=== PATIENT | female | born 1985 | race Caucasian/White ===

== ENCOUNTER 2017-05-16 21:30 | Inpatient (IN) | payer OTHER ==
[~2017-05-16] VITALS: Ht 152.4 cm; Wt 57.0 kg
[2017-05-16 21:30] VITALS: RESP 18; O2SAT 100; O2SAT 99
[2017-05-16] MEDS ORDERED: LIDOCAINE HCL 1% 50 ML VIAL ONE (21:34)
[2017-05-16] MEDS ORDERED: DIPHTH/TETANUS/ACEL PERTUSSIS (BOOSTER) 0.5 ML VIAL/PFS IM ONE (21:35)
[2017-05-16] MEDS ORDERED: ceFAZolin 2 GM PREMIX 50 ML ONE (21:35)
[2017-05-16 22:02] LABS: I-STAT POTASSIUM 2.9 MMOL/L (3.5-4.9)
[2017-05-16 22:03] LABS: AUTOMATED NEUTROPHIL # 7.9 TH/MM3 (1.8-7.7); BASOPHIL # 0.1 TH/MM3 (0-0.2); BASOPHIL % 0.4 % (0.0-2.0); EOSINOPHIL # 0.4 TH/MM3 (0-0.4); EOSINOPHIL % 2.8 % (0.0-4.0); HEMATOCRIT 36.6 % (35.0-46.0); HEMO FLAGS DIFF FINAL; LYMPH % 34.3 % (9.0-44.0); LYMPHOCYTE # 4.7 TH/MM3 (1.0-4.8); MEAN CELL VOLUME 96.5 FL (80.0-100.0); MEAN CORPUSCULAR HEMOGLOBIN 32.9 PG (27.0-34.0); MEAN CORPUSCULAR HGB CONC 34.1 % (32.0-36.0); MONO % 4.6 % (0.0-8.0); NEUT % 57.9 % (16.0-70.0); PLATELET COUNT 183 TH/MM3 (150-450); RED BLOOD COUNT 3.79 MIL/MM3 (4.00-5.30); RED CELL DISTRIBUTION WIDTH 13.1 % (11.6-17.2); WHITE BLOOD COUNT 13.6 TH/MM3 (4.0-11.0)
[2017-05-16] MEDS ORDERED: IOHEXOL 350 MG/ML 10 ML VIAL (for RAD DIAG) IVCONTRAST ONE (22:11)
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
[2017-05-16 22:16] LABS: APTT (PATIENT) 23.3 SEC (24.3-30.1); PROTHROMBIN TIME - PATIENT 11.4 SEC (9.8-11.6)
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
[2017-05-16] MEDS ORDERED: MORPHINE SULFATE 4 MG/ML INJ IV PUSH ONE (22:30)
[2017-05-16] MEDS ORDERED: ONDANSETRON HCL 4 MG/2 ML VIAL IV PUSH ONE (22:30)
[2017-05-16 22:45] VITALS: BP 109/68; PULSE 84; RESP 18; O2SAT 98
--- NOTE | 2017-05-16 23:12 | PD ---
Physical Exam Date Seen by Provider: May 16, 2017 Time Seen by Provider: 23:10 Data Data Last Documented VS Vital Signs Date Time Temp Pulse Resp B/P (MAP) Pulse Ox O2 Delivery O2 Flow Rate FiO2 05/16/17 21:30 18 100 Room Air 05/16/17 21:30 21 Orders Orders Lidocaine 1% Inj (50 Ml) (Xylocaine 1% I (05/16/17 21:34) Cefazolin 2 Gm Premix (Ancef 2 Gm Premix (05/16/17 21:35) Sgwb-Rzo-Wrnman (Booster) Inj (Boostrix (05/16/17 21:35) I-Stat Profile (05/16/17 21:33) I-Stat Creatinine (05/16/17 21:33) Complete Blood Count With Diff (05/16/17 21:33) Prothrombin Time / Inr (Pt) (05/16/17 21:33) Act Partial Throm Time (Ptt) (05/16/17 21:33) Type And Screen (05/16/17 21:33) Ct Brain W/O Iv Contrast(Rout) (05/16/17 21:33) Ct Cerv Spine W/O Contrast (05/16/17 21:33) Ct Abd/Pel W Iv Contrast(Rout) (05/16/17 21:33) Ct Thorax/ Chest W Iv Contrast (05/16/17 21:33) Ct Facial Bones W/O Iv Cont (05/16/17 21:33) Iv Access Insert/Monitor (05/16/17 21:33) Ecg Monitoring (05/16/17 21:33) Oximetry (05/16/17 21:33) Oxygen Administration (05/16/17 21:33) Chest, Single Ap (05/16/17 ) Iohexol 350 Inj (Omnipaque 350 Inj) (05/16/17 22:11) Morphine Inj (Morphine Inj) (05/16/17 22:30) Ondansetron Inj (Zofran Inj) (05/16/17 22:30) Admit Order (Ed Use Only) (05/16/17 22:37) NPO (05/16/17 22:39) Activity Bed Rest With Brp (05/16/17 22:39) Vital Signs (Adult) СВЕТЛАНА.Q4H (05/16/17 22:39) Labs Laboratory Tests Test 05/16/17 21:35 White Blood Count 13.6 TH/MM3 Red Blood Count 3.79 MIL/MM3 Hemoglobin 12.5 GM/DL Bedside Hemoglobin 12.6 G/DL Hematocrit 36.6 % Bedside Hematocrit 37.0 % Mean Corpuscular Volume 96.5 FL Mean Corpuscular Hemoglobin 32.9 PG Mean Corpuscular Hemoglobin Concent 34.1 % Red Cell Distribution Width 13.1 % Platelet Count 183 TH/MM3 Mean Platelet Volume 9.6 FL Neutrophils (%) (Auto) 57.9 % Lymphocytes (%) (Auto) 34.3 % Monocytes (%) (Auto) 4.6 % Eosinophils (%) (Auto) 2.8 % Basophils (%) (Auto) 0.4 % Neutrophils # (Auto) 7.9 TH/MM3 Lymphocytes # (Auto) 4.7 TH/MM3 Monocytes # (Auto) 0.6 TH/MM3 Eosinophils # (Auto) 0.4 TH/MM3 Basophils # (Auto) 0.1 TH/MM3 CBC Comment DIFF FINAL Differential Comment Prothrombin Time 11.4 SEC Prothromb Time International Ratio 1.0 RATIO Activated Partial Thromboplast Time 23.3 SEC Bedside Sodium 144 MMOL/L Bedside Potassium 2.9 MMOL/L Bedside Chloride 110 MMOL/L Bedside Blood Urea Nitrogen 6 MG/DL Bedside Creatinine 0.7 MG/DL Bedside Glucose 143 MG/DL [facility] Supervised Visit with IVA: No Narrative Course I was asked to evaluate this patient's scalp laceration. The patient was initially seen by Dr. Ocampo. Please see his note for full H &P. On my exam an 18 cm laceration of the scalp that extends into the hairline increased a large flap. Patient is alert with repetitive questioning.. Laceration repair was performed. Please see my procedure note for details. Dr. Ocampo retains care of this patient. Please see his note for disposition. Procedures Procedure Narrative LACERATION LOCATION: Scalp, forehead LENGTH: 18 cm NUMBER OF STITCHES/BELINDA: 11 deep, 21 superficial, 10 belinda superficial REPAIR: The area of the laceration was prepped with Betadine and sterilely draped. The laceration was infiltrated with 1% lidocaine. The wound was copiously irrigated and explored without evidence of foreign body, tendon injury or neurovascular injury. The wound was closed using 3-0 Vicryl, 5-0 Prolene, surgical belinda. This was a 2 layer repair. A sterile dressing was applied. The patient was advised to keep the wound clean and dry. Patient tolerated the procedure well. Scripts Unable to Obtain Active Prescriptions or Reported Meds Candace Mclain May 16, 2017 23:12
[2017-05-16 23:30] VITALS: BP 113/61; PULSE 90; RESP 18; O2SAT 98
[2017-05-17 00:10] VITALS: BP 114/74; PULSE 90; RESP 17; TEMP 96.2; O2SAT 99
[2017-05-17] MEDS ORDERED: Post-op Orders (for Pharmacy) MISC XX ONE (00:30)
[2017-05-17] MEDS ORDERED: ACETAMINOPHEN/HYDROcodone 325 MG/5 MG TAB PO PRN (00:30)
[2017-05-17] MEDS ORDERED: NALOXONE HCL 0.4 MG/ML AMP IV PUSH PRN (00:30)
[2017-05-17] MEDS ORDERED: SODIUM CHLOR 0.9% 1000 ML INJ 1,000 ML IV SCH (01:00)
[2017-05-17 01:54] LABS: ALKALINE PHOSPHATASE 53 U/L (45-117); ALT (GPT) 143 U/L (10-53); ANION GAP 10 MEQ/L (5-15); AST (GOT) 175 U/L (15-37); BICARBONATE 18.6 MEQ/L (21.0-32.0); BLOOD UREA NITROGEN 8 MG/DL (7-18); CALCIUM-PROTEIN CORRECTED 7.8 MG/DL (8.5-10.1); CHLORIDE 114 MEQ/L (98-107); GLOMERULAR FILTRATION RATE 142 ML/MIN (>89); SODIUM (NA) 143 MEQ/L (136-145); TOTAL BILIRUBIN ADULT LESS THAN 0.1 MG/DL (0.2-1.0)
[2017-05-17] MEDS: MORPHINE SULFATE 4 MG/ML INJ IV PUSH PRN ×2 (03:23→07:00)
[2017-05-17 04:00] VITALS: BP 129/73; PULSE 97; RESP 16; TEMP 98.3; O2SAT 96
[2017-05-17] MEDS: ONDANSETRON HCL 4 MG/2 ML VIAL IV PUSH PRN (07:00)
[2017-05-17] MEDS ORDERED: LACTULOSE SYRUP 20 GM/30 ML CUP PO PRN (07:15)
[2017-05-17 08:00] VITALS: BP 139/73; PULSE 86; RESP 16; TEMP 96; O2SAT 96
[2017-05-17] MEDS: LIDOCAINE HCL 5% PATCH T-DERMAL SCH (08:59)
[2017-05-17] MEDS: SODIUM CHLORIDE 0.9% FLUSH 10 ML FLUSH IV FLUSH SCH ×2 (09:00→20:41)
[2017-05-17] MEDS: DOCUSATE SODIUM 50 MG/SENNA 8.6 MG TAB PO SCH ×2 (09:01→20:40)
[2017-05-17] MEDS: ACETAMINOPHEN 1000 MG/100 ML 100 ML IV SCH ×3 (09:01→20:41)
[2017-05-17] MEDS: FAMOTIDINE 20 MG TAB PO SCH ×2 (09:01→20:40)
[2017-05-17] MEDS: METHOCARBAMOL 500 MG TAB PO SCH ×3 (09:10→20:40)
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
[2017-05-17 09:57] LABS: AUTOMATED NEUTROPHIL # 12.6 TH/MM3 (1.8-7.7); BASOPHIL % 0.1 % (0.0-2.0); HEMATOCRIT 36.1 % (35.0-46.0); HEMO FLAGS DIFF FINAL; LYMPH % 6.4 % (9.0-44.0); LYMPHOCYTE # 0.9 TH/MM3 (1.0-4.8); MEAN CELL VOLUME 95.7 FL (80.0-100.0); MEAN CORPUSCULAR HEMOGLOBIN 32.8 PG (27.0-34.0); MEAN CORPUSCULAR HGB CONC 34.3 % (32.0-36.0); MONO % 5.9 % (0.0-8.0); NEUT % 87.6 % (16.0-70.0); PLATELET COUNT 159 TH/MM3 (150-450); RED BLOOD COUNT 3.77 MIL/MM3 (4.00-5.30); RED CELL DISTRIBUTION WIDTH 13.1 % (11.6-17.2); WHITE BLOOD COUNT 14.4 TH/MM3 (4.0-11.0)
[2017-05-17 10:20] LABS: ANION GAP 10 MEQ/L (5-15); BICARBONATE 22.9 MEQ/L (21.0-32.0); BLOOD UREA NITROGEN 5 MG/DL (7-18); CHLORIDE 110 MEQ/L (98-107); GLOMERULAR FILTRATION RATE 148 ML/MIN (>89); POTASSIUM 3.9 MEQ/L (3.5-5.1); SODIUM (NA) 143 MEQ/L (136-145)
[2017-05-17 10:24] LABS: BETA HCG QUANT LESS THAN 1 MIU/ML (0-5)
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
[2017-05-17 12:00] VITALS: BP 123/76; PULSE 84; RESP 16; TEMP 97; O2SAT 97
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
[2017-05-17 16:00] VITALS: BP 108/68; PULSE 62; RESP 16; TEMP 98.1; O2SAT 99
--- NOTE | 2017-05-17 16:22 | EKG ---
Date Performed: 05/16/2017 Time Performed: 22:15:23 PTAGE: 31 years EKG: SINUS TACHYCARDIA ABNORMAL RHYTHM ECG NO PREVIOUS TRACING DOCTOR: Zaheer Faye Interpretating Date/Time 05/17/2017 16:20:20
[2017-05-17 20:00] VITALS: BP 123/84; PULSE 75; RESP 18; TEMP 97.6; O2SAT 100
[2017-05-17] MEDS: REMOVE OLD PATCH-LIDOCAINE T-DERMAL SCH (20:44)
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
[2017-05-18] VITALS (9 sets, daily range): BP systolic 116–132; BP diastolic 74–90; PULSE 61–86; RESP 16–20; TEMP 97.5–98.9; O2SAT 98–100
[2017-05-18] MEDS: ACETAMINOPHEN 1000 MG/100 ML 100 ML IV SCH (00:49)
[2017-05-18] MEDS: SODIUM CHLORIDE 0.9% FLUSH 10 ML FLUSH IV FLUSH PRN ×2 (00:50→05:02)
[2017-05-18] MEDS ORDERED: POVIDONE IODINE 5% (ANTISEPSIS KIT) 4 APPLICATIONS EACH NARE PRN (02:00)
[2017-05-18] MEDS ORDERED: CHLORHEXIDINE GLUCONATE 2 % 1 PACK (2 CLOTHS) TOPICAL PRN (02:00)
[2017-05-18] MEDS ORDERED: LACTATED RINGER'S 1000 ML IV PRN (02:00)
[2017-05-18] MEDS: METHOCARBAMOL 500 MG TAB PO SCH ×3 (05:00→21:02)
[2017-05-18] MEDS: ONDANSETRON HCL 4 MG/2 ML VIAL IV PUSH PRN ×2 (05:00→13:34)
[2017-05-18] MEDS: DOCUSATE SODIUM 50 MG/SENNA 8.6 MG TAB PO SCH ×2 (08:20→21:02)
[2017-05-18] MEDS: FAMOTIDINE 20 MG TAB PO SCH ×2 (08:20→21:02)
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
[2017-05-18] MEDS: BACITRACIN TOP OINT 15 GM TUBE TOPICAL SCH ×2 (09:14→21:03)
[2017-05-18] MEDS: LIDOCAINE HCL 5% PATCH T-DERMAL SCH (09:14)
[2017-05-18] MEDS: SODIUM CHLORIDE 0.9% FLUSH 10 ML FLUSH IV FLUSH SCH ×2 (09:15→21:02)
[2017-05-18] MEDS ORDERED: ACETAMINOPHEN 1000 MG/100 ML 100 ML IV ONE (10:30)
[2017-05-18] MEDS ORDERED: ceFAZolin 2 GM PREMIX 50 ML ONE (10:51)
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
[2017-05-18] MEDS ORDERED: *MEPERIDINE 25 MG INJ VIAL PERIprocedural Use ONLY ONE (12:20)
--- NOTE | 2017-05-18 12:26 | RADRPT ---
EXAM DATE/TIME: 05/18/2017 11:15 [facility] COMPARISON: ANKLE LEFT LIMITED (AP&LAT), May 17, 2017, 14:06. INDICATIONS : Open reduction internal fixation of the left ankle. MEDICAL HISTORY : None. SURGICAL HISTORY : None. ENCOUNTER: Subsequent ACUITY: 2 days PAIN SCORE: Non-responsive. LOCATION: Left ankle. FINDINGS: 5 intraoperative spot images of the left ankle. Medial malleolus fracture again seen. Medial internal fixation plate and 3 transfixing screws identified. CONCLUSION: Intraoperative spot images of the ankle showing fracture and internal fixation hardware. Jesus Holbrook MD on May 18, 2017 at 12:23 Board Certified Radiologist. This report was verified electronically.
[2017-05-18] MEDS: KETOROLAC TROMETHAMINE 30 MG/ML (IVP) VIAL IV PUSH SCH ×3 (12:29→23:17)
--- NOTE | 2017-05-18 12:31 | HHI.PR ---
Immediate Post Op Note Procedure Date: May 18, 2017 Pre Op Diagnosis: Left medial malleolus fracture Post Op Diagnosis: same Surgeon: Kolton Clay DPM Band And Cuff Cutter(s): Staff Procedure: ORIF Left ankle, medial malleolus Findings: Consistent with diagnosis. Transverse medial malleolus fracture displaced. Linear incision made over the area and periosteum in fracture site inhibiting reduction. Synthes medial hook plate and 4.0 cannulated cancellous screw placed distally, and two proximal screws, distally fully-threaded cancellous and proximally cortical screw, placed through 2 most proximal holes in plate respectively, and reduction confirmed with c-arm. Examination under anesthesia showed ankle joint to be stable. Irrigation and closure with 3-0 vicryl and 2-0 nylon suture, followed by xeroform, 4x4, cast padding, short posterior splint and ashwin LLE. NWB LLE. Keep clean, dry, intact Follow up in clinic 1 week for dressing change Additional Information: 2g ancef IV Complications: None Specimen(s) removed: N/a Estimated blood loss: Minimal Anesthesia: General Drains: None IVF Tourniquet time (min at mmHg) n/a Patient to: PACU Patient Condition: Good Date/Time of Procedure: SEE SURGICAL CARE RECORD Kolton Clay DPM May 18, 2017 12:31
[2017-05-18] MEDS ORDERED: DO NOT ADM ANY ANTICOAGULANT DRUGS PRN (12:45)
--- NOTE | 2017-05-18 13:24 | RADRPT ---
EXAM DATE/TIME: 05/18/2017 12:38 [facility] COMPARISON: ANKLE LEFT COMPLETE ([id number]), May 18, 2017, 11:15. INDICATIONS : Post operative images. MEDICAL HISTORY : Fracture. SURGICAL HISTORY : None. ENCOUNTER: Initial ACUITY: 1 day PAIN SCORE: 7/10 LOCATION: Left ankle. FINDINGS: 3 views left ankle. Medial internal fixation plate and 3 transfixing screws are seen in the distal ti herber. Medial malleolus fracture again seen. Alignment is near anatomic CONCLUSION: Internal fixation hardware in place across medial malleolus fracture. Jesus Holbrook MD on May 18, 2017 at 13:21 Board Certified Radiologist. This report was verified electronically.
[2017-05-18 14:57] LABS: INDIRECT BILIRUBIN 0.3 MG/DL (0.0-0.8); TOTAL BILIRUBIN ADULT 0.4 MG/DL (0.2-1.0)
[2017-05-18] MEDS: REMOVE OLD PATCH-LIDOCAINE T-DERMAL SCH (21:10)
[2017-05-19 04:00] VITALS: BP 125/76; PULSE 89; RESP 17; TEMP 97.9; O2SAT 98
[2017-05-19] MEDS: METHOCARBAMOL 500 MG TAB PO SCH (06:00)
[2017-05-19] MEDS: KETOROLAC TROMETHAMINE 30 MG/ML (IVP) VIAL IV PUSH SCH ×2 (06:00→11:04)
[2017-05-19] MEDS: SODIUM CHLORIDE 0.9% FLUSH 10 ML FLUSH IV FLUSH PRN (06:00)
[2017-05-19 07:02] LABS: AUTOMATED NEUTROPHIL # 8.5 TH/MM3 (1.8-7.7); BASOPHIL % 0.3 % (0.0-2.0); EOSINOPHIL % 0.3 % (0.0-4.0); HEMATOCRIT 33.6 % (35.0-46.0); HEMO FLAGS DIFF FINAL; LYMPH % 16.3 % (9.0-44.0); LYMPHOCYTE # 1.9 TH/MM3 (1.0-4.8); MEAN CELL VOLUME 95.8 FL (80.0-100.0); MEAN CORPUSCULAR HEMOGLOBIN 32.5 PG (27.0-34.0); MONO % 8.8 % (0.0-8.0); NEUT % 74.3 % (16.0-70.0); PLATELET COUNT 140 TH/MM3 (150-450); RED BLOOD COUNT 3.51 MIL/MM3 (4.00-5.30); RED CELL DISTRIBUTION WIDTH 13.1 % (11.6-17.2); WHITE BLOOD COUNT 11.4 TH/MM3 (4.0-11.0)
[2017-05-19 07:12] LABS: ALT (GPT) 81 U/L (10-53); ANION GAP 6 MEQ/L (5-15); AST (GOT) 56 U/L (15-37); BICARBONATE 28.2 MEQ/L (21.0-32.0); BLOOD UREA NITROGEN 8 MG/DL (7-18); CHLORIDE 105 MEQ/L (98-107); GLOMERULAR FILTRATION RATE 145 ML/MIN (>89); POTASSIUM 3.9 MEQ/L (3.5-5.1); SODIUM (NA) 139 MEQ/L (136-145)
[2017-05-19 07:14] LABS: ALKALINE PHOSPHATASE 57 U/L (45-117); TOTAL BILIRUBIN ADULT 0.6 MG/DL (0.2-1.0)
[2017-05-19 08:00] VITALS: BP 134/91; PULSE 94; RESP 19; TEMP 98; O2SAT 100
[2017-05-19 08:30] VITALS: O2SAT 95
[2017-05-19] MEDS: BACITRACIN TOP OINT 15 GM TUBE TOPICAL SCH (08:52)
[2017-05-19] MEDS: SODIUM CHLORIDE 0.9% FLUSH 10 ML FLUSH IV FLUSH SCH (08:53)
[2017-05-19] MEDS: FAMOTIDINE 20 MG TAB PO SCH (08:53)
[2017-05-19] MEDS: LIDOCAINE HCL 5% PATCH T-DERMAL SCH (08:53)
[2017-05-19] MEDS: DOCUSATE SODIUM 50 MG/SENNA 8.6 MG TAB PO SCH (08:53)
[2017-05-19] MEDS ORDERED: WALKER WHEELS/F1 MIS (10:29)
[2017-05-19] MEDS ORDERED: LACTULOSE SYRUP 20 GM/30 ML CUP PO ONE (10:30)
[2017-05-19] MEDS ORDERED: METH500T3 PO (11:01)
[2017-05-19] MEDS ORDERED: PERC5TAB12 PO (11:01)
[2017-05-19] MEDS ORDERED: PERI PO (11:01)
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
[2017-05-19 12:00] VITALS: BP 137/87; PULSE 89; RESP 18; TEMP 97.3; O2SAT 99
== END 2017-05-19 14:15 | disposition home or self-care (01) | DRG 493 ==
LOC: NEPC 21:30 → NEDA 22:40 → N06A 05-17 00:10
PROVIDERS: ADMIT Surgery; ATTEND Surgery
PROC: 0HQ0XZZ Repair Scalp Skin, External Approach (ICD-10-PCS; 2017-05-16)
PROC: 0QSH04Z Reposition Left Tibia with Internal Fixation Device, Open Approach (ICD-10-PCS; principal; 2017-05-18 17:45)
DX: S82.52XA Displaced fracture of medial malleolus of left tibia, initial encounter for closed fracture (principal); S22.41XA Multiple fractures of ribs, right side, initial encounter for closed fracture; S27.321A Contusion of lung, unilateral, initial encounter; E27.49 Other adrenocortical insufficiency; S06.0X9A Concussion with loss of consciousness of unspecified duration, initial encounter; S01.81XA Laceration without foreign body of other part of head, initial encounter; S01.01XA Laceration without foreign body of scalp, initial encounter; V47.5XXA Car driver injured in collision with fixed or stationary object in traffic accident, initial encounter; Y92.410 Unspecified street and highway as the place of occurrence of the external cause; Y93.89 Activity, other specified; R41.2 Retrograde amnesia; R11.10 Vomiting, unspecified
CPT/HCPCS: 12034; 70450; 70486; 71010; 71260; 72125; 73600; 73610; 74177; 76000; 80048; 80053; 80076; 82435; 82565; 82947; 84132; 84295; 84520; 84702; 85025; 85610; 85730; 86850; 86900; 86901; 90471; 90715; 93005; 94150; 94640; 94667; 94668; 99292; J0131; J0690; J1885; J2175; J2270; J2405; J7030; Q9967